=== PATIENT | female | born 1955 | race Caucasian/White ===

== ENCOUNTER → 2019-12-04 | Outpatient (CLI) | payer OTHER ==
--- NOTE | 2019-12-04 14:12 | Diagnostic Imaging Report ---
INDICATION: Pain status post injury. COMPARISON: None. FINDINGS: Three radiographic views of the right foot were obtained. There is acute slightly obliquely oriented fracture involving the proximal margins of the fifth proximal phalanx. There is slight medial subluxation of the distal fracture fragment. There is no intra-articular extension. No other acute osseous abnormalities are seen. Joint spaces are maintained. No unexpected radiopaque foreign bodies are seen. IMPRESSION: 1. Acute fracture of the fifth proximal phalanx as described above. Dictated by: Dictated on workstation # [id number]
== END ==
LOC: RAD FS 13:27
PROVIDERS: ATTEND Nurse Practitioner
DX: S92.511A Displaced fracture of proximal phalanx of right lesser toe(s), initial encounter for closed fracture (principal); X58.XXXA Exposure to other specified factors, initial encounter
CPT/HCPCS: 73630

== ENCOUNTER 2020-09-05 12:56 | Emergency (ER) | payer OTHER ==
[~2020-09-05] VITALS: Ht 162 cm; Wt 83.0 kg
--- NOTE | 2020-09-05 13:13 | ED GU-Female ---
General Chief Complaint: - Urinary Stated Complaint: ABD/BACK/SUPRAPUBIC PAIN; FEVER; URINARY URGENCY Source: patient History of Present Illness Date Seen by Provider: Sep 05, 2020 Time Seen by Provider: 13:03 Initial Comments 65-year-old female presenting with right flank pain and low back pain. She states this started about 3 to 4 hours prior to arrival in the ED. It feels different than the pain that she has had before. She reports it is a severe pain and unusual for her. She does have irritable bowel as well as chronic low back pain but states this feels different. She has had some urinary frequency as well. She denies any fever or chills. She has had no nausea or vomiting. She has not taken anything for the pain. Timing/Duration: just prior to arrival (3-4 hours [employer]al [employer]) Severity/Quality: severe, cramping, throbbing Location: right flank Activities at Onset: none Prior Genitourinary Problems: none Associated Symptoms: No abdominal pain, No diaphoresis; dysuria; No fev er/chills, No loss of bladder control; lower back pain (chronic); No lumps, No mass, No nausea/vomiting, No nocturia, No polyuria, No swelling, No syncope; urinary frequency Allergies and Home Medications Allergies Coded Allergies: rosuvastatin (Verified Allergy, Severe, 09/05/20) Muscle pain Home Medications Tamsulosin HCl 0.4 Mg Cap, 0.4 MG PO DAILY Prescribed by: WALT JEFFREY on 09/05/20 1430 Patient Home Medication List Home Medication List Reviewed: Yes Review of Systems Review of Systems Constitutional: No chills, No fever EENTM: no symptoms reported Respiratory: no symptoms reported Cardiovascular: no symptoms reported Gastrointestinal: no symptoms reported Genitourinary: see HPI, dysuria, frequency, flank pain (right side) Musculoskeletal: back pain (chronic low back pain but states the pain she is having now feels different) Skin: no symptoms reported Psychiatric/Neurological: No Symptoms Reported Endocrine: No Symptoms Reported Past [id number]-Rgltbm-Mzstho Hx Past Med/Social Hx: Reviewed Nursing Past Med/Soc Hx Past Medical History Cardiac: Yes High Cholesterol, Hypertension Gastrointestinal: Yes Irritable Bowel Musculoskeletal: Yes Chronic Back Pain Physical Exam Vital Signs Vital Signs - First Documented 09/05/20 09/05/20 13:00 14:23 Temp 36.9 Pulse 74 Resp 18 B/P (MAP) 164/73 (103) Pulse Ox 99 O2 Delivery Room Air Capillary Refill : Height, Weight, BMI Height: '" Weight: lbs. oz. kg; BMI Method: General Appearance: WD/WN, no apparent distress HEENT: pharynx normal Neck: non-tender, full range of motion Cardiovascular: normal peripheral pulses, regular rate, rhythm Respiratory: chest non-tender, lungs clear, normal breath sounds Gastrointestinal: normal bowel sounds, soft, no pulsatile mass; No distended, No guarding, No rebound; tenderness (mild pain to right flank, but not significa ntly worse with palpation ) Rectal: deferred Back: no CVA tenderness Extremities: normal range of motion, normal capillary refill Neurologic/Psychiatric: alert, oriented x 3 Skin: normal color, warm/dry Progress/Results/Core Measures Suspected Sepsis SIRS Temperature: Pulse: Respiratory Rate: Blood Pressure / Mean: Results/Orders Lab Results Laboratory Tests Test 09/05/20 13:00 Range/Units Urine Color YELLOW Urine Clarity CLOUDY Urine pH 7.0 5-9 Urine Specific [place] 1.020 1.016-1.022 Urine Protein NEGATIVE NEGATIVE Urine Glucose (UA) NEGATIVE NEGATIVE Urine Ketones NEGATIVE NEGATIVE Urine Nitrite NEGATIVE NEGATIVE Urine Bilirubin NEGATIVE NEGATIVE Urine Urobilinogen 0.2 < = 1.0 MG/DL Urine Leukocyte Esterase TRACE H NEGATIVE Urine RBC (Auto) 2+ H NEGATIVE Urine RBC 25-50 H /HPF Urine WBC 2-5 /HPF Urine Squamous Epithelial Cells RARE /HPF Urine Crystals NONE /LPF Urine Bacteria TRACE /HPF Urine Casts NONE /LPF Urine Mucus NEGATIVE /LPF Urine Culture Indicated NO My Orders Orders - WALT JEFFREY MD Ua Culture If Indicated (09/05/20 13:06) Ct Abd/Pelvis Wo(Kidney Stone) (09/05/20 13:44) Vital Signs/I&O 09/05/20 09/05/20 13:00 14:23 Temp 36.9 36.9 Pulse 74 70 Resp 18 18 B/P (MAP) 164/73 (103) 147/72 Pulse Ox 99 99 O2 Delivery Room Air Capillary Refill : Progress Note #1: Progress Note Obtain urinalysis to evaluate for possible UTI. Depending on the results of the UA will determine if she needs additional testing or started on medication for infection. Differential diagnosis includes cystitis with bladder spasms, kidney stone, irritable bowel, diverticulitis, colitis, appendicitis, cholecystitis Progress Note #2: Time: 13:27 Progress Note Urinalysis shows trace leukocyte esterase but also 2+ blood and red blood cells are present. Will discuss with patient that this could be a kidney stone and obtaining imaging and labs would help to determine if it is just UTI or if there is stone or other pathology causing her symptoms. Progress Note #3: Time: 14:[address] shows right distal ureter kidney stone and a stone in the kidney. Counseled on follow up and return precautions. Diagnostic Imaging Diagonstic Imaging: CT Plain Films/CT/US/NM/MRI: abdomen, pelvis Comments [facility], [place] NAME: CARROLL ALCOCER [facility] REC#: [id number] PT STATUS: REG ER : 1955 PHYSICIAN: WALT JEFFREY MD ADMIT DATE: 09/05/20/ER FS Draft Date of Exam:09/05/20 CT ABD/PELVIS WO(KIDNEY STONE) PROCEDURE: CT urinary tract, rule out kidney stone. TECHNIQUE: Multiple contiguous axial images were obtained through the abdomen and pelvis without the use of intravenous contrast. Auto Exposure Controls were utilized during the CT exam to meet ALARA standards for radiation dose reduction. INDICATION: Right flank pain. COMPARISON: No prior studies are available for comparison. FINDINGS: Lung bases are clear. No discrete liver mass is detected. Gallbladder is unremarkable. There is no biliary ductal dilatation. The pancreas and spleen are unremarkable. No adrenal mass is detected. There is a 3-4 mm nonobstructing calculus in the lower pole of right kidney. Left kidney is unremarkable. There does appear to be right-sided hydroureteronephrosis. Dilated right ureter is traced into the pelvis where there is an approximately 2-3 mm calculus at the right UVJ. No bladder calculi are seen. Aorta is nonaneurysmal. Small and large bowel loops are normal caliber. There is no free fluid or fluid collection. Bony structures are nonacute. IMPRESSION: Nonobstructing right renal calculus. In addition, there is a 2-3 mm right UVJ calculus producing moderate hydroureteronephrosis. Dictated on workstation # [id number] Dict: 09/05/20 1404 Trans: 09/05/20 1408 [facility] [id number] Interpreted by: DAKSHA RODRIGEZ MD Electronically signed by: Departure Impression Primary Impression: Calculus of distal right ureter Additional Impressions: Right flank pain Renal colic on right side Disposition: 01 HOME, SELF-CARE Condition: Stable Departure-Patient Inst. Decision time for Depature: 14:26 Referrals: SELF,ROXANN SERRA (PCP/Family) Primary Care Physician VIRGINIA MOSELEY MD Patient Instructions: Kidney Stone, Adult ED, How to Strain Your Urine, Kidney Stone Diet, Renal Colic (DC) Add. Discharge Instructions: Stay well hydrated and drink plenty of water. Avoid carbonated and caffeinated drinks. Take acetaminophen or ibuprofen for pain. Flomax (Tamsulosin) 0.4 mg daily will help the ureter relax and the kidney stone pass easier. strain your urine to see when the stone has passed and if you catch it you could have the clinic send it for analysis to see if you need to change or adjust your diet to help prevent recurrent kidney stones. Return or seek medical care if having fever over 101 F, uncontrolled pain, uncontrolled vomiting. Consider follow up with Dr. Moseley or Urologist of your choice if having lynn nued problems or pain is not resolving and you have not seen the stone pass in your urine when you strain it. You may need the Urologist to help remove the stone if that happens. All discharge instructions reviewed with patient and/or family. Voiced under standing. Scripts Tamsulosin HCl (Flomax) 0.4 Mg Cap 0.4 MG PO DAILY for renal colic for 5 Days, #5 CAP 0 Refills Prov: WALT JEFFREY MD 09/05/20 WALT JEFFREY MD Sep 05, 2020 13:13
[2020-09-05 13:18] LABS: BILIRUBIN,URINE NEGATIVE (NEGATIVE); CLARITY,URINE CLOUDY; COLOR,URINE YELLOW; GLUCOSE, URINE (UA) NEGATIVE (NEGATIVE); KETONES,URINE NEGATIVE (NEGATIVE); LEUKOCYTE ESTERASE ,URINE TRACE (NEGATIVE); NITRITE,URINE NEGATIVE (NEGATIVE); PROTEIN,URINE NEGATIVE (NEGATIVE)
[2020-09-05 13:19] LABS: BACTERIA,URINE TRACE /HPF; RBC,URINE 25-50 /HPF; SQUAMOUS EPITHELIAL CELL,UR RARE /HPF
--- NOTE | 2020-09-05 14:09 | Diagnostic Imaging Report ---
PROCEDURE: CT urinary tract, rule out kidney stone. TECHNIQUE: Multiple contiguous axial images were obtained through the abdomen and pelvis without the use of intravenous contrast. Auto Exposure Controls were utilized during the CT exam to meet ALARA standards for radiation dose reduction. INDICATION: Right flank pain. COMPARISON: No prior studies are available for comparison. FINDINGS: Lung bases are clear. No discrete liver mass is detected. Gallbladder is unremarkable. There is no biliary ductal dilatation. The pancreas and spleen are unremarkable. No adrenal mass is detected. There is a 3-4 mm nonobstructing calculus in the lower pole of right kidney. Left kidney is unremarkable. There does appear to be right-sided hydroureteronephrosis. Dilated right ureter is traced into the pelvis where there is an approximately 2-3 mm calculus at the right UVJ. No bladder calculi are seen. Aorta is nonaneurysmal. Small and large bowel loops are normal caliber. There is no free fluid or fluid collection. Bony structures are nonacute. IMPRESSION: Nonobstructing right renal calculus. In addition, there is a 2-3 mm right UVJ calculus producing moderate hydroureteronephrosis. Dictated by: Dictated on workstation # [id number]
[2020-09-05 14:23] VITALS: BP 147/72
[2020-09-05] MEDS ORDERED: TMSL.4C PO (14:30)
== END 2020-09-05 14:33 | disposition home or self-care (01) ==
LOC: EDUNIT# 12:56 → ER FS 12:58
DX: N13.2 Hydronephrosis with renal and ureteral calculous obstruction (principal); I10 Essential (primary) hypertension; Z88.8 Allergy status to other drugs, medicaments and biological substances
CPT/HCPCS: 74176; 81000